=== PATIENT | male | born 1970 | race Caucasian/White ===

== ENCOUNTER → 2017-05-26 | Outpatient (CLI) | payer BC ==
--- NOTE | 2017-05-26 17:00 | PCVCIMAG ---
EXAM: LEFT LOWER EXTREMITY ARTERIAL DUPLEX INDICATION: Peripheral Arterial Disease. Leg pain. FINDINGS: Left Leg: Satisfactory arterial waveforms in the common femoral and profunda femoral arteries and throughout the superficial femoral artery and popliteal arteries without flow-limiting stenosis. 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 The peroneal artery and posterior tibial arteries are patent. IMPRESSION: No superficial femoral or popliteal artery stenosis. 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 LOC:[id number]
== END | disposition home or self-care (01) ==
LOC: PCVCIMAG 15:15
PROVIDERS: ATTEND Nuclear Medicine Nuclear Cardiology
DX: I73.9 Peripheral vascular disease, unspecified (principal); I77.1 Stricture of artery; L97.829 Non-pressure chronic ulcer of other part of left lower leg with unspecified severity
CPT/HCPCS: 93926